=== PATIENT | male | born 1955 | race Two or more races ===

== ENCOUNTER 2024-05-22 15:05 | Emergency (ER) | payer OTHER ==
[~2024-05-22] VITALS: Ht 177.8 cm; Wt 79.8 kg
[2024-05-22] MEDS ORDERED: LOSARTAN POTASS50 MG PO (15:53)
[2024-05-22] MEDS ORDERED: CARDURA8 MG PO (15:53)
== END 2024-05-22 17:34 | disposition home or self-care (01) ==
LOC: ER 15:06
DX: K42.9 Umbilical hernia without obstruction or gangrene (principal); I10 Essential (primary) hypertension; K21.9 Gastro-esophageal reflux disease without esophagitis

== ENCOUNTER 2025-07-04 10:00 | Emergency (ER) | payer OTHER ==
[~2025-07-04] VITALS: Ht 177.8 cm; Wt 80.7 kg
[~2025-07-04 10:00] MED LIST: CARDURA8 MG PO; LOSARTAN POTASS50 MG PO
[2025-07-04 12:48] LABS: BASO % 1.1 % (0.1-1.2); EOS # 0.02 (0.04-0.54); EOS % 0.6 % (0.7-7.0); LYMPH # 0.82 (1.18-3.74); LYMPH % 22.6 % (19.3-53.1); MEAN PLATELET VOLUME 9.60 fl (9.4-12.4); MONO # 0.36 (0.24-0.82); MONO % 9.9 % (4.7-12.5); NEUT # 2.38 (1.56-6.13); NEUT % 65.5 % (34.0-71.1); RED CELL DISTRIBUTION WIDTH 13.0 % (11.6-14.4)
[2025-07-04 13:26] LABS: BUN CREA RATIO 22.0 (7.0-25.0); CREATININE SERUM 1.1 mg/dL (0.70-1.30); GFR 65.8; GLUCOSE FASTING 99.0 mg/dL (65-100); OSMOLALITY SERUM 291.0 MOSM/KG (275-295)
[2025-07-04 13:55] LABS: URINE APPEARANCE Clear; URINE BILIRRUBIN Negative (NEGATIVE); URINE BLOOD Trace; URINE COLOR Yellow; URINE GLUCOSE Negative (NEGATIVE); URINE KETONE Negative (NEGATIVE); URINE LEUKOCYTE Negative; URINE NITRATE Negative; URINE PROTEIN Negative (NEGATIVE); URINE UROBILINOGEN 0.2 E.U./dl
[2025-07-04 13:58] LABS: URINE RBC 8.0 uL (0.0-20.8); URINE WBC 2.1 uL (0.0-23.2)
[2025-07-04 14:10] LABS: URINE BACTERIA 3.5 uL (0.0-1933); URINE CAST 0.14 uL (0.0-1.40); URINE EPITHELIAL CELLS 0.6 uL (0.0-38.8)
== END 2025-07-04 18:41 | disposition home or self-care (01) ==
LOC: ER 10:00
PROVIDERS: Emergency Medicine
DX: K59.01 Slow transit constipation (principal); I10 Essential (primary) hypertension; K44.9 Diaphragmatic hernia without obstruction or gangrene; N40.0 Benign prostatic hyperplasia without lower urinary tract symptoms; I70.90 Unspecified atherosclerosis

== ENCOUNTER 2025-10-17 18:32 | Emergency (ER) | payer OTHER ==
[~2025-10-17] VITALS: Ht 177.8 cm; Wt 79.8 kg
[2025-10-17] MEDS ORDERED: KETOROLAC TROMETHAMINE 60 MG VIAL IM STA (20:08)
[2025-10-17] MEDS ORDERED: DEXAMETHASONE SODIUM PHOSPHATE 4 MG/ML VIAL IM STA (20:09)
[2025-10-17] MEDS ORDERED: ORPHENADRINE CITRATE 30 MG/ML AMPUL IM STA (20:09)
[2025-10-17] MEDS ORDERED: METAXALONE640 MG PO (20:48)
[2025-10-17] MEDS ORDERED: MEDROLPACK PO (20:48)
[2025-10-17] MEDS ORDERED: DICLOFENAC POTA50 MG PO (20:48)
== END 2025-10-17 21:59 | disposition home or self-care (01) ==
LOC: ER 18:32
DX: M54.59 Other low back pain (principal); M51.369 Other intervertebral disc degeneration, lumbar region without mention of lumbar back pain or lower extremity pain; M85.88 Other specified disorders of bone density and structure, other site; I10 Essential (primary) hypertension
CPT/HCPCS: 72100; 96372; 99283; J1100; J1885; J2360